=== PATIENT | female | born 1955 | race African-American/Black ===

== ENCOUNTER 2018-09-25 03:35 | Inpatient (IN) | payer MEDICAID ==
[~2018-09-25] VITALS: Ht 170.2 cm; Wt 99.8 kg
[~2018-09-25 03:35] MED LIST: ASPIR-LOW81 M1 PO; K10 PO; MIN2.5 PO; NOR10 PO; PRA40 PO; TEN50 PO; TYLENOL PO; XOP0.63; ZYR10 PO
[2018-09-25 03:40] VITALS: Ht 170.2 cm; Wt 99.8 kg
--- NOTE | 2018-09-25 03:45 | NUR ---
PATIENT AAOX4 BIB [facility] WITH ALLERGIC REACTION THAT STARTED ABOUT 230AM. PT STATES SHE WOKE UP BECAUSE SHE HAD TO GO TO THE BATHROOM AND NOTICED THE SWELLING OF HER TONGUE AND TOP OF HER MOUTH IS SWOLLEN. PT STATES THIS HAPPENS OFTEN BUT DENIES ANY ALLERGIES TO ANY FOOD PRODUCTS. PATIENT DENIES SOB, BUT STATES SHE IS HAVING DIFFICULTY SWALLOWING. MEDIC STATES SHE WAS GIVEN 25MG OF BENADRYL IN ROUTE. SKIN WARM, DRY AND INTACT- NO SKIN RASH NOTED ANYWHERE ON BODY OR FACE. PATIENT PLACED ON MONITORS FOR FURTHER OBSERVATION.
--- NOTE | 2018-09-25 04:36 | NUR ---
MEDICATED PER MD ORDERS
--- NOTE | 2018-09-25 04:57 | NUR ---
PLACED PATIENT ON COVER CUTTER MACHINE-- EKG COMPLETE. PATIENT REFUSED 02 THERAPY AT THIS TIME. 02 SATURATIONS AT 99% ON RA. WILL CONTINUE TO MONITOR.
[2018-09-25] MEDS ORDERED: LASIX20 MG PO (05:10)
[2018-09-25] MEDS ORDERED: METOPROLOL TART25 M1 PO (05:10)
[2018-09-25] MEDS ORDERED: HCTZ/SPIRONOLAC1 TAB (05:12)
[2018-09-25 05:14] LABS: BASOPHIL % 0.3 % (0-2); PLATELET COUNT 172 x10^3mcL (130-400); RED CELL DISTRIBUTION WIDTH 13.6 % (11.5-14.5)
[2018-09-25 05:15] LABS: CALCIUM 9.5 mg/dL (8.5-10.1); CARBON DIOXIDE 26.5 mmol/L (21-32); CHLORIDE SERUM 104 mmol/L (98-107); GFR1 > 60 mL/min; GLUCOSE SERUM 102 mg/dL (74-106); POTASSIUM SERUM 3.4 mmol/L (3.5-5.1); SODIUM SERUM 141 mmol/L (136-145)
[2018-09-25] MEDS ORDERED: OXYCODONE HCL30 M1 PO (05:27)
[2018-09-25 05:31] LABS: ALBUMIN 3.5 g/dL (3.4-5.0); ALKALINE PHOSPHATASE 111 U/L (46-116); ALT/SGPT 31 U/L (14-59); AST/SGOT 17 U/L (15-37); BILIRUBIN TOTAL 0.47 mg/dL (0.20-1.00); FREE T4 0.98 ng/dL (0.76-1.46); TOTAL PROTEIN, SERUM 7.4 g/dL (6.4-8.2)
--- NOTE | 2018-09-25 05:33 | NUR ---
RECEIVED REPORT FROM TRENT ALVA FROM ED. ALL QUESTIONS AND CONCERS ADDRESSED.
--- NOTE | 2018-09-25 05:45 | NUR ---
PT ARRIVED TO UNIT AT THIS TIME ON ED GURNEY WITH RN AND EMT PT PLACED IN ICU 6 AND PLACED ON FULL MECHANICAL MAINTENANCE WORKER PT IS A/O X4, SPEECH IS CLEAR AND FOLLOWS COMMANDS. PT HAS ANGIOEDEMA TO FACE, LIP AND TONGUE AND STATES THAT THIS HAPPENS ONCE A MONTH. CHEST RISE AND FALL EQUAL AND UNLABORED. PT HAS 20G IV TO LT AC. PT HAS FULL ROM. BED LEFT IN THE LOWEST POSITION AND CALL LIGHT LEFT WITHIN REACH.
[2018-09-25 05:56] VITALS: BP 168/88
[2018-09-25 06:00] LABS: MAGNESIUM 2.1 mg/dL (1.8-2.4)
[2018-09-25 06:02] LABS: CHOLESTEROL/HDL RATIO 3.2
[2018-09-25 07:10] LABS: microscopic required? YES; urine erythrocyte NEGATIVE (NEGATIVE)
[2018-09-25 07:15] LABS: AMPHETAMINE QUAL UR NONE DETECTED (See below)
[2018-09-25 07:30] VITALS: BP 138/82
--- NOTE | 2018-09-25 07:30 | NUR ---
THE PATIENT AWAKE AND ORIENTED TO PERSON, PLACE AND TIME WITH GARBLED SPEECH DUE TO ANGIOEDEMA. PATIENT DENIES PAIN, SHORTNESS OF BREATH OR NAUSEA/VOMITING. IVF NS AT 100ML/HR VIA IV AT LAC. TELE # 6 READS SINUS BRADYCARDIA/NORMAL SINUS RHYTHMS. CALL LIGHT WITHIN REACH. SIDE RAILS UPX 3.
[2018-09-25 07:45] VITALS: BP 152/82; BP 152/85
--- NOTE | 2018-09-25 08:14 | NUR ---
DR. BELL IS AT BEDSIDE SEEING THE PATIENT.
--- NOTE | 2018-09-25 09:45 | NUR ---
DR. BAKER AND THE TEAM ARE MAKING ROUND TO SEE THE PATIENT.
--- NOTE | 2018-09-25 09:58 | NUR ---
DR. BAKER, RESIDENTS, LINE RIDER AND PRIMARY RN AT BEDSIDE FOR ROUNDING. PLAN OF CARE DISCUSSED. ALL PARTIES IN AGREEMENT. STATES TO MAKE SURE PT CAN SWALLOW AND THEN POSSIBLE DISCHARGE TODAY.
[2018-09-25 11:00] VITALS: BP 136/97; BP 147/93
[2018-09-25] MEDS ORDERED: MEDDP PO (12:16)
--- NOTE | 2018-09-25 12:39 | NUR ---
Discount pharmacy card and list to low cost medical clinics given to patient by Britton Ward.
--- NOTE | 2018-09-25 13:20 | NUR ---
PATIENT FINISHED 100% OF REGULAR DIET TRAY FOR LUNCH WITH NO DIFFICULTY.
[2018-09-25 13:38] VITALS: BP 128/51
--- NOTE | 2018-09-25 14:43 | NUR ---
DISCHARGE INSTRUCTION AND PRESCRIPTION WERE IMPLEMENTED TO THE PATIENT. CONCERNS WERE ADDRESSED AND THE PATIENT VERBALIZED UNDERSTANDING. IV SITE REMOVED WITH CATH INTACT. PATIENT IS ESCORTED TO THE DISCHARGE OFFICE IN STABLE CONDITION. ALL BELONGINGS SENT HOME WITH PATIENT UPON DISCHARGE.
== END 2018-09-25 14:45 | disposition home or self-care (01) | DRG 811 ==
LOC: ED 03:35 → IC 05:00
PROVIDERS: Emergency Medicine; ADMIT Internal Medicine
DX: T78.3XXA Angioneurotic edema, initial encounter (principal); N17.0 Acute kidney failure with tubular necrosis; J44.9 Chronic obstructive pulmonary disease, unspecified; I10 Essential (primary) hypertension; E87.6 Hypokalemia; E78.5 Hyperlipidemia, unspecified; J45.909 Unspecified asthma, uncomplicated; Z68.34 Body mass index [BMI] 34.0-34.9, adult
CPT/HCPCS: 83880; 84439; C9113; G0378; J1200; J2920; J2930; J3490; J7030; Q0092

== ENCOUNTER 2018-10-31 02:32 | Inpatient (IN) | payer MEDICAID ==
[~2018-10-31] VITALS: Ht 170.2 cm; Wt 95.7 kg
[~2018-10-31 02:32] MED LIST changes: +HCTZ/SPIRONOLAC1 TAB; +LASIX20 MG PO; +MEDDP PO; +METOPROLOL TART25 M1 PO; +OXYCODONE HCL30 M1 PO
[2018-10-31 02:37] VITALS: Ht 170.2 cm; Wt 95.7 kg
--- NOTE | 2018-10-31 02:38 | NUR ---
PT BIB AMBULANCE FOR C/O OF TONGUE SWELLING THAT SHE NOTICE AT [facility] 0130 THIS MORNING. PT STATES THAT SHE HAS HAD THIS PROBELM BEFORE AND STATES HER TONGUE SWELLING IS GENETIC. PT DENIES ANY OTHER SYMPTOMS. PT DENIES ANY PAIN. PT TALKING IN FULL AND COMPLETE SENTENCES. PTS LUNG SOUNDS ARE CLEAR IN ALL FEILDS. PT NOTED TO HAVE DIFFICULTY SPEAKING. PT IS A/O X4. RESP ARE EQUAL AND UNLABORED. NO ACUTE DISTRESS NOTED.
[2018-10-31 03:12] LABS: BASOPHIL % 0.6 % (0-2); PLATELET COUNT 143 x10^3mcL (130-400); RED CELL DISTRIBUTION WIDTH 12.9 % (11.5-14.5)
[2018-10-31 03:17] LABS: CALCIUM 8.8 mg/dL (8.5-10.1); CARBON DIOXIDE 22.3 mmol/L (21-32); CREATININE SERUM 1.9 mg/dL (0.6-1.0); POTASSIUM SERUM 3.3 mmol/L (3.5-5.1)
--- NOTE | 2018-10-31 03:20 | NUR ---
PT SIGNED CONSENT FOR FFP TRANSFUSION. PT STATES THAT HER TONGUE SWELLING FEELS THE SAME AFTER RECIEVING THE MEDICATIONS. PT TALKING IN FULL AND COMPLETE SENTECES AND LUNG SOUNDS ARE CLEAR WITH AUSCULTATION. NO ACUTE DISTRESS NOTED. CALL LIGHT IS WITHIN REACH. PT IN FULL [facility] N[facility]SING STATION.
[2018-10-31 03:22] LABS: ALBUMIN 3.5 g/dL (3.4-5.0); BILIRUBIN TOTAL 0.61 mg/dL (0.20-1.00); TOTAL PROTEIN, SERUM 7.8 g/dL (6.4-8.2)
--- NOTE | 2018-10-31 03:52 | NUR ---
CALLED LAB FOR FFP. [facility] ([employer]) REPORTS IT WILL BE READY IN APPROX 25MINS. MD JACQUES MADE AWARE.
--- NOTE | 2018-10-31 04:28 | NUR ---
PT EDUCATED ON S/S OF ADVERSE REACTIONS TO FFP AND TO INFORM ME IF SHE EXPERIENCES ANY OF THE S/S. PT VERBALIZES UNDERSTANDING. TRENT LIRA AT BEDSIDE TO VERIFY PTS INFORMATION AND COSIGNS FOR FFP.
--- NOTE | 2018-10-31 04:29 | NUR ---
FFP STARTED AT THIS TIME PER MD JACQUES AT A RATE OF 3.34MLS/HR TO ACHEIVE 50MLS IN THE FIRST 15MINS OF INFUSION. WILL CONTINUE TO MONITOR.
--- NOTE | 2018-10-31 04:44 | NUR ---
INFUSED 50MLS OF FFP IN 15MINS RATE IS 200MLS/HR. PT TOLERATED WELL. NO SIGNS OF ADVERSE REACTIONS, PT HAS NO COMPLAINTS AT THIS TIME. NO ACUTE DISTRESS NOTED. FFP INFUSION SET TO RUN OVER THE NEXT HR PER MD JACQUES.
[2018-10-31 05:33] LABS: CALCIUM 8.5 mg/dL (8.5-10.1); CARBON DIOXIDE 21.9 mmol/L (21-32); CREATININE SERUM 1.6 mg/dL (0.6-1.0); PHOSPHOROUS 4.1 mg/dL (2.5-4.9); POTASSIUM SERUM 3.4 mmol/L (3.5-5.1)
--- NOTE | 2018-10-31 05:43 | NUR ---
PT SLEEPING AT THIS TIME EQUAL CHEST RISE AND FALL NOTED. FFP STILL RUNNING AT THIS TIME. PT VITALS ARE WNL. NO ACUTE DISTRESS NOTED.
--- NOTE | 2018-10-31 05:53 | NUR ---
FFP INFUSION FINISHED AT THIS TIME. PT TOLERATED WELL. VITALS ARE WNL. NO ACUTE DISTRESS NOTED. PT TALKING IN FULL AND COMPLETE SENTENCES. PT LUNG SOUNDS ARE CLEAR. PT REPORTS SHE FEEL HER TONGUE SWELLING HAS DECREASED.
[2018-10-31 06:08] VITALS: BP 119/73
--- NOTE | 2018-10-31 06:13 | NUR ---
TRENT LIRA AT BEDSIDE TO VERFIY INFORMATION FOR 2ND UNIT OF FFP AND COSIGN.
--- NOTE | 2018-10-31 06:15 | NUR ---
SECOND UNIT OF FFP STARTED AT THIS TIME PER MD JACQUES. INFUSION STARTED AT 200MLS/HR TO ACHIEVE AND INFUSION OF 50MLS IN THE FIRST 15MINS. AT PTS BEDSIDE TO MONITOR FOR SIGNS OF ADVERSE REACTIONS.
[2018-10-31] MEDS ORDERED: XARELTO10 M1 PO (06:16)
--- NOTE | 2018-10-31 06:32 | NUR ---
50MLS OF FFP INFUSED OVER 15MINS. NO SIGNS OF ADVERSE REACTIONS. PT HAS NO COMPLAINTS. PT VITALS ARE WNL. NO ACUTE DISTRESS NOTED. FFP INFUSION SET TO RUN OVER THE NEXT HR PER MD JACQUES.
--- NOTE | 2018-10-31 06:48 | NUR ---
SUMMONDED TO PTS BEDSIDE. PT COMPLAINS OF ITCHINESS TO HER BACK. PT NOTED TO HAVE REDNESS AND HIVES TO HER UPPER BACK. INFUSION STOPPED AT THIS TIME. PT VITALS WNL. PT NOT COMPLAINING OF ANY DIFFICULTY BREATING. MD CAMPOS MADE AWARE. PER MD CAMPOS GIVE PT 50MG OF BENADRYL IV AND CONTINUE FFP INFUSION.
--- NOTE | 2018-10-31 07:13 | NUR ---
PT REPORTING ITCHINESS AGAIN. FFP INFUSION STOPPED AT THIS TIME. PT VITALS ARE WNL. MD CAMPOS MADE AWARE. PER MD CAMPOS HOLD THE REST OF THE INFUSION. PT VITALS WNL. NO ACUTE DISTRESS NOTED.
--- NOTE | 2018-10-31 07:51 | NUR ---
REPORT GIVEN TO HARRY NEWMAN TO ASSUME CARE OF PT.
--- NOTE | 2018-10-31 08:00 | NUR ---
PT ARRIVED ON UNIT AWAKE & ALERT, ORIENTED X 4. ADMISSION VITAL SIGNS: T 97.1, BP 138/63 (88), HR 96, RR 12, SPO2 97%. PT ABLE TO COMMUNICATE NEEDS & FOLLOWS COMMANDS. PT BREATHING E/U ON ROOM AIR, CHEST EXPANSION SYMMETRICAL. PT'S TONGUE IS SWOLLEN BUT PT DENIES DIFFICULTY BREATHING AND DENIES DIFFICULTY SWALLOWING. PT HAS HIVES, BUT NO AREAS OF BROKEN SKIN OR OTHER SKIN ALTERATIONS. PT AMBULATORY, ABLE TO REPOSITION SELF IN BED. WILL CONTINUE TO MONITOR PT AND CARRY OUT ORDERS.
--- NOTE | 2018-10-31 09:53 | NUR ---
DR. BAKER, RESIDENTS, INTERN RETAIL AND PRIMARY RN AT BEDSIDE FOR MORNING ROUNDS. PLAN OF CARE DISCUSSED WITH PT. PT IN AGREEMENT TO PLAN. WILL CONT TO MONITOR.
[2018-10-31 10:02] VITALS: BP 138/63
[2018-10-31 12:30] VITALS: BP 117/51
--- NOTE | 2018-10-31 15:16 | NUR ---
Discount pharmacy card and list to low cost medical clinics given to patient by Britton Ward.
[2018-10-31] MEDS ORDERED: MEDDP PO (15:30)
[2018-10-31 15:33] VITALS: BP 116/72
[2018-10-31 16:23] VITALS: BP 116/72
--- NOTE | 2018-10-31 17:31 | NUR ---
PT DISCHARGED HOME FROM ICU AT THIS TIME. PT AWAKE, ALERT, ORIENTED X 4. DISCHARGE VITAL SIGNS: T 97.6, BP 117/63 (80), HR 84, RR 20, SPO2 94% ON ROOM AIR. NO S/S RESPIRATORY DISTRESS, PT'S TONGUE SWELLING WENT DOWN, PT'S HIVES RESOLVED. PT AMBULATORY, TAKEN OUT OF UNIT VIA WHEELCHAIR BY RN. PT STABLE UPON DISCHARGE, PROVIDED WITH DISCHARGE EDUCATION & PRESCRIPTION FOR NEW MEDICATIONS.
== END 2018-10-31 17:31 | disposition home or self-care (01) | DRG 811 ==
LOC: ED 02:32 → IC 04:32
PROVIDERS: Emergency Medicine; ADMIT Internal Medicine
DX: T78.3XXA Angioneurotic edema, initial encounter (principal); N17.0 Acute kidney failure with tubular necrosis; E87.5 Hyperkalemia; I10 Essential (primary) hypertension; J44.9 Chronic obstructive pulmonary disease, unspecified; Z68.33 Body mass index [BMI] 33.0-33.9, adult; Z79.01 Long term (current) use of anticoagulants; Z86.73 Personal history of transient ischemic attack (TIA), and cerebral infarction without residual deficits
CPT/HCPCS: 94150; G0378; J1200; J2920; J2930; J3490; J7030; J7040; J7620; P9059; Q0092

== ENCOUNTER 2018-12-07 10:17 | Emergency (ER) | payer MEDICAID ==
[~2018-12-07] VITALS: Ht 170.2 cm; Wt 101.2 kg
[~2018-12-07 10:17] MED LIST changes: +XARELTO10 M1 PO
[2018-12-07 10:20] VITALS: Ht 170.2 cm; Wt 101.2 kg
[2018-12-07 12:00] LABS: BASOPHIL % 0.3 % (0-2); PLATELET COUNT 152 x10^3mcL (130-400); RED CELL DISTRIBUTION WIDTH 13.7 % (11.5-14.5)
[2018-12-07 13:06] LABS: CALCIUM 8.4 mg/dL (8.5-10.1); CARBON DIOXIDE 30.2 mmol/L (21-32); CREATININE SERUM 1.3 mg/dL (0.6-1.0); POTASSIUM SERUM 3.9 mmol/L (3.5-5.1)
[2018-12-07 13:10] LABS: BILIRUBIN TOTAL 0.56 mg/dL (0.20-1.00); TOTAL PROTEIN, SERUM 7.1 g/dL (6.4-8.2)
[2018-12-07 13:13] LABS: ALBUMIN 3.3 g/dL (3.4-5.0)
[2018-12-07 13:55] VITALS: BP 153/87
== END 2018-12-07 13:55 | disposition home or self-care (01) ==
LOC: ED 10:17
PROVIDERS: Emergency Medicine
DX: T78.3XXA Angioneurotic edema, initial encounter (principal); J44.9 Chronic obstructive pulmonary disease, unspecified; E78.00 Pure hypercholesterolemia, unspecified; Z88.8 Allergy status to other drugs, medicaments and biological substances; Z88.6 Allergy status to analgesic agent
CPT/HCPCS: J0171; J1200; J2930; J3490

== ENCOUNTER 2019-02-11 08:05 | Emergency (ER) | payer OTHER ==
[~2019-02-11] VITALS: Ht 170.2 cm; Wt 101.6 kg
[2019-02-11 08:09] VITALS: Ht 170.2 cm; Wt 101.6 kg
[2019-02-11 09:32] VITALS: BP 166/92
== END 2019-02-11 09:48 | disposition home or self-care (01) ==
LOC: ED 08:05
DX: T78.40XA Allergy, unspecified, initial encounter (principal); J44.9 Chronic obstructive pulmonary disease, unspecified; I10 Essential (primary) hypertension; E78.00 Pure hypercholesterolemia, unspecified; Z86.73 Personal history of transient ischemic attack (TIA), and cerebral infarction without residual deficits; Z88.6 Allergy status to analgesic agent; X58.XXXA Exposure to other specified factors, initial encounter
CPT/HCPCS: J7512

== ENCOUNTER 2019-02-21 10:27 | Emergency (ER) | payer OTHER ==
[~2019-02-21] VITALS: Ht 170.2 cm; Wt 100.7 kg
[2019-02-21 10:33] VITALS: Ht 170.2 cm; Wt 100.7 kg
[2019-02-21 12:15] VITALS: BP 112/86
== END 2019-02-21 12:49 | disposition home or self-care (01) ==
LOC: ED 10:27
DX: J40 Bronchitis, not specified as acute or chronic (principal); J44.9 Chronic obstructive pulmonary disease, unspecified; I10 Essential (primary) hypertension; E78.00 Pure hypercholesterolemia, unspecified; Z86.73 Personal history of transient ischemic attack (TIA), and cerebral infarction without residual deficits; Z88.6 Allergy status to analgesic agent
CPT/HCPCS: 87804; Q0092

== ENCOUNTER 2019-03-26 12:09 | Emergency (ER) | payer MEDICAID ==
[~2019-03-26] VITALS: Ht 170.2 cm; Wt 97.5 kg
[2019-03-26 12:24] VITALS: Ht 170.2 cm; Wt 97.5 kg
[2019-03-26 14:05] VITALS: BP 121/75
== END 2019-03-26 14:05 | disposition home or self-care (01) ==
LOC: ED 12:09
DX: T78.3XXA Angioneurotic edema, initial encounter (principal); J45.909 Unspecified asthma, uncomplicated; J44.9 Chronic obstructive pulmonary disease, unspecified; I10 Essential (primary) hypertension; E78.00 Pure hypercholesterolemia, unspecified; Z98.84 Bariatric surgery status; Z88.6 Allergy status to analgesic agent; Z88.8 Allergy status to other drugs, medicaments and biological substances; Z86.73 Personal history of transient ischemic attack (TIA), and cerebral infarction without residual deficits
CPT/HCPCS: J7512; Q0163

== ENCOUNTER 2019-04-15 07:30 | Emergency (ER) | payer OTHER ==
[~2019-04-15] VITALS: Ht 170.2 cm; Wt 99.3 kg
[2019-04-15 07:36] VITALS: Ht 170.2 cm; Wt 99.3 kg
[2019-04-15 12:05] VITALS: BP 131/91
== END 2019-04-15 12:05 | disposition home or self-care (01) ==
LOC: ED 07:30
DX: T78.3XXA Angioneurotic edema, initial encounter (principal)
CPT/HCPCS: J1200; J3490; J7030

== ENCOUNTER 2019-06-20 01:46 | Emergency (ER) | payer OTHER ==
[~2019-06-20] VITALS: Ht 170.2 cm; Wt 957.6 kg
[2019-06-20 01:54] VITALS: Ht 170.2 cm; Wt 957.6 kg
[2019-06-20 05:31] VITALS: BP 141/74
== END 2019-06-20 05:31 | disposition home or self-care (01) ==
LOC: ED 01:46
DX: T78.3XXA Angioneurotic edema, initial encounter (principal); J44.1 Chronic obstructive pulmonary disease with (acute) exacerbation; I10 Essential (primary) hypertension; E78.00 Pure hypercholesterolemia, unspecified; Z86.73 Personal history of transient ischemic attack (TIA), and cerebral infarction without residual deficits; Z98.84 Bariatric surgery status; Z88.6 Allergy status to analgesic agent; Z88.8 Allergy status to other drugs, medicaments and biological substances
CPT/HCPCS: J1200; J2930; J3490

== ENCOUNTER 2019-07-15 08:40 | Emergency (ER) | payer OTHER ==
[~2019-07-15] VITALS: Ht 172.7 cm; Wt 95.3 kg
[2019-07-15 08:47] VITALS: Ht 172.7 cm; Wt 95.3 kg
[2019-07-15 09:39] LABS: CALCIUM 8.9 mg/dL (8.5-10.1); CARBON DIOXIDE 28.5 mmol/L (21-32); POTASSIUM SERUM 4.4 mmol/L (3.5-5.1)
[2019-07-15 09:44] LABS: ALBUMIN 3.4 g/dL (3.4-5.0); BILIRUBIN TOTAL 0.33 mg/dL (0.20-1.00); TOTAL PROTEIN, SERUM 6.8 g/dL (6.4-8.2)
[2019-07-15 09:54] LABS: BASOPHIL % 0.4 % (0-2); PLATELET COUNT 144 x10^3mcL (130-400)
[2019-07-15 09:57] LABS: RED CELL DISTRIBUTION WIDTH 14.9 % (11.5-14.5)
[2019-07-15 11:03] VITALS: BP 128/87
== END 2019-07-15 11:03 | disposition home or self-care (01) ==
LOC: ED 08:40
PROVIDERS: Emergency Medicine
DX: R07.89 Other chest pain (principal); I11.0 Hypertensive heart disease with heart failure; I50.9 Heart failure, unspecified; F17.210 Nicotine dependence, cigarettes, uncomplicated; E78.00 Pure hypercholesterolemia, unspecified; J44.9 Chronic obstructive pulmonary disease, unspecified; Z88.6 Allergy status to analgesic agent
CPT/HCPCS: 36415; 83880; Q0092

== ENCOUNTER 2019-07-23 17:21 | Emergency (ER) | payer OTHER ==
[~2019-07-23] VITALS: Ht 170.2 cm; Wt 94.8 kg
[2019-07-23 17:28] VITALS: Ht 170.2 cm; Wt 94.8 kg
[2019-07-23 19:40] VITALS: BP 139/83
== END 2019-07-23 19:40 | disposition home or self-care (01) ==
LOC: ED 17:21
DX: T78.3XXA Angioneurotic edema, initial encounter (principal); J44.9 Chronic obstructive pulmonary disease, unspecified; I50.9 Heart failure, unspecified; I10 Essential (primary) hypertension; E78.00 Pure hypercholesterolemia, unspecified; Z88.6 Allergy status to analgesic agent; Z86.73 Personal history of transient ischemic attack (TIA), and cerebral infarction without residual deficits; Z98.84 Bariatric surgery status; Z88.8 Allergy status to other drugs, medicaments and biological substances
CPT/HCPCS: J1100; J1200; J3490

== ENCOUNTER 2019-08-08 06:08 | Emergency (ER) | payer OTHER ==
[~2019-08-08] VITALS: Ht 170.2 cm; Wt 94.8 kg
[2019-08-08 06:16] VITALS: Ht 170.2 cm; Wt 94.8 kg
[2019-08-08 07:24] LABS: microscopic required? NO
[2019-08-08 07:26] LABS: CALCIUM 8.9 mg/dL (8.5-10.1); CARBON DIOXIDE 27.7 mmol/L (21-32); CREATININE SERUM 1.1 mg/dL (0.6-1.0); POTASSIUM SERUM 3.7 mmol/L (3.5-5.1)
[2019-08-08 07:28] LABS: BILIRUBIN TOTAL 0.39 mg/dL (0.20-1.00); TOTAL PROTEIN, SERUM 6.8 g/dL (6.4-8.2)
[2019-08-08 07:29] LABS: ALBUMIN 3.3 g/dL (3.4-5.0)
[2019-08-08 07:52] LABS: BASOPHIL % 0.5 % (0-2); PLATELET COUNT 150 x10^3mcL (130-400)
[2019-08-08 07:53] LABS: RED CELL DISTRIBUTION WIDTH 14.6 % (11.5-14.5)
[2019-08-08 08:12] LABS: urine erythrocyte NEGATIVE (NEGATIVE)
[2019-08-08 08:44] VITALS: BP 134/96
== END 2019-08-08 08:44 | disposition home or self-care (01) ==
LOC: ED 06:08
PROVIDERS: Emergency Medicine
DX: R42 Dizziness and giddiness (principal); R20.0 Anesthesia of skin; F17.210 Nicotine dependence, cigarettes, uncomplicated; J44.9 Chronic obstructive pulmonary disease, unspecified; I11.0 Hypertensive heart disease with heart failure; I50.9 Heart failure, unspecified; E78.00 Pure hypercholesterolemia, unspecified; Z86.2 Personal history of diseases of the blood and blood-forming organs and certain disorders involving the immune mechanism; Z88.6 Allergy status to analgesic agent
CPT/HCPCS: 36415

== ENCOUNTER 2019-10-19 14:39 | Emergency (ER) | payer OTHER ==
[~2019-10-19] VITALS: Ht 175.3 cm; Wt 95.3 kg
[2019-10-19 14:49] VITALS: BP 150/91; Ht 175.3 cm; Wt 95.3 kg
== END 2019-10-19 16:59 | disposition home or self-care (01) ==
LOC: ED 14:39
DX: M79.661 Pain in right lower leg (principal); M54.16 Radiculopathy, lumbar region; J44.9 Chronic obstructive pulmonary disease, unspecified; G89.29 Other chronic pain; M54.5 Low back pain; I50.9 Heart failure, unspecified; I11.0 Hypertensive heart disease with heart failure; E78.00 Pure hypercholesterolemia, unspecified; Z86.73 Personal history of transient ischemic attack (TIA), and cerebral infarction without residual deficits; Z88.8 Allergy status to other drugs, medicaments and biological substances; Z88.6 Allergy status to analgesic agent
CPT/HCPCS: Q0092

== ENCOUNTER 2019-11-17 14:50 | Emergency (ER) | payer OTHER ==
[~2019-11-17] VITALS: Ht 170.2 cm; Wt 96.2 kg
[2019-11-17 15:06] VITALS: Ht 170.2 cm; Wt 96.2 kg
[2019-11-17 15:31] VITALS: BP 145/92
== END 2019-11-17 17:06 | disposition home or self-care (01) ==
LOC: ED 14:50
DX: T78.3XXA Angioneurotic edema, initial encounter (principal); J44.9 Chronic obstructive pulmonary disease, unspecified; I50.9 Heart failure, unspecified; I10 Essential (primary) hypertension; E78.00 Pure hypercholesterolemia, unspecified; Z98.84 Bariatric surgery status; Z86.73 Personal history of transient ischemic attack (TIA), and cerebral infarction without residual deficits; Z88.6 Allergy status to analgesic agent
CPT/HCPCS: J1200; J2930; J3490

== ENCOUNTER 2019-12-08 14:32 | Emergency (ER) | payer OTHER ==
[~2019-12-08] VITALS: Ht 170.2 cm; Wt 93.9 kg
[2019-12-08 15:00] VITALS: Ht 170.2 cm; Wt 93.9 kg
[2019-12-08 17:18] LABS: CALCIUM 8.9 mg/dL (8.5-10.1); CARBON DIOXIDE 26.7 mmol/L (21-32); CREATININE SERUM 1.4 mg/dL (0.6-1.0); POTASSIUM SERUM 3.3 mmol/L (3.5-5.1)
[2019-12-08 17:22] LABS: BILIRUBIN TOTAL 0.44 mg/dL (0.20-1.00)
[2019-12-08 17:23] LABS: BASOPHIL % 0.8 % (0-2); PLATELET COUNT 158 x10^3mcL (130-400); RED CELL DISTRIBUTION WIDTH 13.8 % (11.5-14.5)
[2019-12-08 17:24] LABS: ALBUMIN 3.1 g/dL (3.4-5.0)
[2019-12-08 20:30] VITALS: BP 138/92
== END 2019-12-08 20:30 | disposition home or self-care (01) ==
LOC: ED 14:32
PROVIDERS: Emergency Medicine
DX: J44.1 Chronic obstructive pulmonary disease with (acute) exacerbation (principal); F17.210 Nicotine dependence, cigarettes, uncomplicated; J45.909 Unspecified asthma, uncomplicated; I11.0 Hypertensive heart disease with heart failure; I50.9 Heart failure, unspecified; E78.00 Pure hypercholesterolemia, unspecified; Z86.73 Personal history of transient ischemic attack (TIA), and cerebral infarction without residual deficits; Z88.6 Allergy status to analgesic agent
CPT/HCPCS: 99406; Q0092

== ENCOUNTER 2019-12-28 09:56 | Emergency (ER) | payer OTHER ==
[~2019-12-28] VITALS: Ht 170.2 cm; Wt 95.3 kg
[2019-12-28 10:01] VITALS: BP 138/81; Ht 170.2 cm; Wt 95.3 kg
== END 2019-12-28 10:18 | disposition home or self-care (01) ==
LOC: ED 09:56
DX: G89.29 Other chronic pain (principal); Z76.0 Encounter for issue of repeat prescription; J44.9 Chronic obstructive pulmonary disease, unspecified; I50.9 Heart failure, unspecified; I11.0 Hypertensive heart disease with heart failure; E78.00 Pure hypercholesterolemia, unspecified; Z86.73 Personal history of transient ischemic attack (TIA), and cerebral infarction without residual deficits; Z88.6 Allergy status to analgesic agent

== ENCOUNTER 2020-02-02 19:30 | Emergency (ER) | payer OTHER ==
[~2020-02-02] VITALS: Ht 170.2 cm; Wt 95.3 kg
[2020-02-02 20:01] VITALS: Ht 170.2 cm; Wt 95.3 kg
[2020-02-03 00:46] LABS: CALCIUM 8.8 mg/dL (8.5-10.1); CARBON DIOXIDE 29.4 mmol/L (21-32); CREATININE SERUM 1.3 mg/dL (0.6-1.0); POTASSIUM SERUM 3.7 mmol/L (3.5-5.1)
--- NOTE | 2020-02-03 00:52 | NUR ---
MDI 3 PUFF TX DONE IN ED. NO ADVERSE REACTIONS.
[2020-02-03 00:53] LABS: BILIRUBIN TOTAL 0.7 mg/dL (0.20-1.00); TOTAL PROTEIN, SERUM 7.2 g/dL (6.4-8.2)
[2020-02-03 01:00] LABS: ALBUMIN 3.3 g/dL (3.4-5.0)
[2020-02-03 01:02] LABS: BASOPHIL % 0.4 % (0-2); PLATELET COUNT 190 x10^3mcL (130-400); RED CELL DISTRIBUTION WIDTH 14.5 % (11.5-14.5)
[2020-02-03 03:12] VITALS: BP 141/95
== END 2020-02-03 02:57 | disposition home or self-care (01) ==
LOC: ED 19:30
PROVIDERS: Student in an Organized Health Care Education/Training Program
DX: J44.1 Chronic obstructive pulmonary disease with (acute) exacerbation (principal); I11.0 Hypertensive heart disease with heart failure; I50.9 Heart failure, unspecified; E78.00 Pure hypercholesterolemia, unspecified; F17.210 Nicotine dependence, cigarettes, uncomplicated; Z88.6 Allergy status to analgesic agent; Z98.84 Bariatric surgery status; Z20.828 Contact with and (suspected) exposure to other viral communicable diseases; R06.2 Wheezing
CPT/HCPCS: 83880; J1940; J7512; U0003

== ENCOUNTER 2020-02-18 19:27 | Inpatient (IN) | payer OTHER ==
[~2020-02-18] VITALS: Ht 170.2 cm; Wt 94.9 kg
[2020-02-18 19:35] VITALS: Ht 170.2 cm; Wt 94.9 kg
[2020-02-18 21:00] LABS: BASOPHIL % 0.5 % (0-2); PLATELET COUNT 176 x10^3mcL (130-400)
[2020-02-18 21:08] LABS: CALCIUM 9.1 mg/dL (8.5-10.1); CARBON DIOXIDE 27.3 mmol/L (21-32); CREATININE SERUM 1.2 mg/dL (0.6-1.0); POTASSIUM SERUM 3.3 mmol/L (3.5-5.1)
[2020-02-18 21:12] LABS: ALBUMIN 3.4 g/dL (3.4-5.0); BILIRUBIN TOTAL 0.71 mg/dL (0.20-1.00); TOTAL PROTEIN, SERUM 7.7 g/dL (6.4-8.2)
[2020-02-18 21:13] LABS: RED CELL DISTRIBUTION WIDTH 15.2 % (11.5-14.5)
--- NOTE | 2020-02-18 21:33 | NUR ---
PT IN ED FOR HEART PALPITATIONS AND SOB THAT STARTED TODAY AROUND 1600 THIS EVENING. PT DENIES CHEST PAIN. CONNECTED TO CM, VSS. PT HAS HX OF COPD AND CHF, AND IS COMPLINT WITH MEDICATIONS PER PT. EKG DONE IN TRIAGE AND GIVEN TO MD PT IS A SMOKER, AAO X4 ABLE TO MAKE NEEDS KNOWN, NO EDEMA OBSERVED, AWAITING MSE.
--- NOTE | 2020-02-18 22:10 | NUR ---
PT IN BED DR HARE JUST FINISHED MSE. DENIES SOB AT REASSESSMENT, CONTINUES TO DENY PAIN, WILL MONITOR
--- NOTE | 2020-02-19 00:25 | NUR ---
PT IN [facility] UPDATED ON POC, PT IS AWARE THAT SHE IS BEING ADMITTED, VSS DENIES PAIN, PT SWABBED FOR ALEXANDRO AND SENT TO LAB PT STATES SHE IS TIRED AND WISHES TO REST, WILL MONITOR
[2020-02-19 01:12] LABS: MAGNESIUM 1.9 mg/dL (1.8-2.4); PHOSPHOROUS 3.4 mg/dL (2.5-4.9)
--- NOTE | 2020-02-19 01:16 | NUR ---
PT A&OX4 WITH BILATERAL CHEST RISE AND FALL. PT AMBULATED TO RESTROOM WITH STEADY GAIT. URINE SPECIMEN SENT TO LAB.
[2020-02-19 01:22] LABS: T3 TOTAL 0.99 ng/mL
[2020-02-19 01:22] LABS: microscopic required? NO
[2020-02-19 01:39] LABS: UA SPECIFIC GRAVITY 1.015 (1.005-1.035); urine erythrocyte NEGATIVE (NEGATIVE)
[2020-02-19 02:02] LABS: AMPHETAMINE QUAL UR NONE DETECTED (See below)
[2020-02-19 02:10] VITALS: BP 152/89
[2020-02-19 02:11] LABS: FREE T4 1.02 ng/dL (0.76-1.46); FREE THYROXINE INDEX 2.1 ug/dL (1.4-4.5); T4(THYROXINE) 5.8 ug/dL (4.7-13.3)
--- NOTE | 2020-02-19 02:22 | NUR ---
RECEIVED FROM ER, TRANSPORTED VIA [facility]. AWAKE AND ALERT, ORIENTED TO NAME, PLACE, TIME AND SITUATION. SPEECH CLEAR AND APPROPRIATE. AMBULATED FROM HALLWAY TO BED WITH STEADY GAIT. BREATHING EVEN AND UNLABORED ON ROOM AIR. LUNG SOUNDS DIMINISHED BILATERALLY, NO RALES OR CRACKLES HEARD. O2 SAT 100%. SINUS RHYTHM WITH BBB WHEN PLACED ON TELE. DENIES HAVING CHEST PAIN OR PALPITATIONS AT THIS TIME. INSTRUCTED ON USE OF CALL LIGHT TO CALL FOR ASSISTANCE, PLACED WITHIN EASY REACH.
--- NOTE | 2020-02-19 04:23 | NUR ---
MEDICAL DOCTOR MD CALLED, PT HAD 4 RUNS OF PVCS. PT SLEEPING ON PRONE POSITION. ASYMPTOMATIC. VITAL SIGNS TAKEN - BP 144/95, IL 75, O2 SAT 95% ON RA, RR 18.
[2020-02-19 04:24] VITALS: BP 144/95
--- NOTE | 2020-02-19 04:31 | NUR ---
PAGED DR. VEE
--- NOTE | 2020-02-19 05:46 | NUR ---
AWAIT CALL BACK, REPAGED DR. SEGOVIA
--- NOTE | 2020-02-19 06:05 | NUR ---
CALLED RESIDENT'S PHONE, SPOKE WITH DR. SEGOVIA, INFORMED OF 4 CONSECUTIVE PVCS EARLIER, PT ASYMPTOMATIC.
--- NOTE | 2020-02-19 06:13 | NUR ---
EYES CLOSED, BREATHING EVEN AND UNLABORED ON ROOM AIR. CALL LIGHT WITHIN EASY REACH.
--- NOTE | 2020-02-19 06:46 | NUR ---
HAD A SHORT RUN OF VTACH. PT ASYMPTOMATIC. INFORMED DR. SEGOVIA
--- NOTE | 2020-02-19 07:16 | NUR ---
ENDORSED TO REGISTRY NURSE AMARILIS
[2020-02-19 08:57] VITALS: BP 141/81
[2020-02-19 09:00] LABS: BASOPHIL % 0.2 % (0-2); PLATELET COUNT 168 x10^3mcL (130-400)
[2020-02-19 09:13] LABS: RED CELL DISTRIBUTION WIDTH 14.7 % (11.5-14.5)
[2020-02-19 10:47] LABS: CALCIUM 8.8 mg/dL (8.5-10.1); CARBON DIOXIDE 25.7 mmol/L (21-32); CREATININE SERUM 1.1 mg/dL (0.6-1.0); POTASSIUM SERUM 3.6 mmol/L (3.5-5.1)
--- NOTE | 2020-02-19 11:20 | NUR ---
RECEIVED PATIENT IN ROOM, ACTIVITIES AT BEDSIDE. PATIENT IS ALERT, AWAKE AND ORIENTED X4. PATIENT ON ROOM AIR. NOTED MULTIPLE FACIAL SKIN TAGS. PATIENT IS AMBULATORY WITH STEADY GAIT. ECHO DONE AT HIS TIME. BED IN LOWEST POSITION. CALL LIGHT WIHTIN EASY REACH. RECEIVED XARELTO. DENIES PAIN AT THIS TIME. WILL CONTINUE TO MONITOR PATIENT.
[2020-02-19 12:25] VITALS: BP 142/85
--- NOTE | 2020-02-19 13:19 | NUR ---
PATIENT RESTING QUIETLY, DENIES PAIN. WILL CONTINUE TO MONITOR.
[2020-02-19 16:05] VITALS: BP 149/77
--- NOTE | 2020-02-19 19:31 | NUR ---
AWAKE AND ALERT, LYING ON HER TUMMY. ORIENTED TO NAME, PLACE, TIME AND SITUATION. SPEECH CLEAR AND APPROPRIATE. BREATHING EVEN AND UNLABORED ON ROOM AIR. DENIES HAVING SHORTNESS OF BREATH AT THIS TIME. SINUS RHYTHM WITH LEFT BUNDLE BRANCH WITH PVCS NOTED ON TELE. DENIES HAVING CHEST PAIN OR CHEST DISCOMFORT AT THIS TIME. STATED VOIDING WELL. SALINE LOCKED TO RIGHT AC. DISCUSSED WITH PT MEDICATIONS DUE TONIGHT. PT EXPRESSED THAT SHE TAKES XARELTO AND CANNOT TAKE ELIQUIS. WILL INFORMED RESIDENT COMMERCIAL INSURANCE UNDERWRITER.
[2020-02-19 20:32] VITALS: BP 127/73
--- NOTE | 2020-02-19 20:42 | NUR ---
DISCUSSED WITH PT PURPOSE OF ELIQUIS AND COREG. SHE CLARIFIED SHE HAD NO DEFINITE ALLERGIES TO ELIQUIS OR COREG, BUT THAT SHE HAS BEEN TAKING XARELTO. PT AGREED TO TAKE BOTH
--- NOTE | 2020-02-19 20:56 | NUR ---
late entry: - informed dr. aldana that pt had stated she takes xarelto and cannot take eliquis.
--- NOTE | 2020-02-20 00:11 | NUR ---
RISK CONSULTANT REPORTED PT HAD SHORT RUN OF VTACH. CHECKED PT. PT WAS ASLEEP, EASILY AWAKENED. ASYMPTOMATIC. PHYSICIANS AWARE PT HAS EPISODES OF SHORT RUN OF VTACH. DR. LIZARRAGA ALREADY ON CONSULT.
--- NOTE | 2020-02-20 01:15 | NUR ---
INFORMED DR. SEGOVIA PT HAD SHORT RUN OF VTACH, ASYMPTOMATIC.
[2020-02-20 05:45] VITALS: BP 122/78
--- NOTE | 2020-02-20 06:40 | NUR ---
EYES CLOSED, EASILY AWAKENED. BREATHING REMAINED EVEN AND UNLABORED ON ROOM AIR. NO COMPLAINTS OF CHEST PAIN OR CHEST DISCOMFORT DURING SHIFT. CALL LIGHT WITHIN EASY REACH.
--- NOTE | 2020-02-20 07:18 | NUR ---
AWAKE AND ALERT, IN NO ACUTE DISTRESS. ENDORSED TO NURSE REE
--- NOTE | 2020-02-20 07:30 | NUR ---
RECEIVED REPORT FROM NIGHT NURSE. PATIENT IS RESTING IN BED, AAO TIMES. 4. DENIES PAIN. RESPIRATIONS EVEN AND UL ON RA. DENIES CP/CARDIAC DISCOMFORT. SL TO RAC, CDI, PATENT. BED IN LOWEST POSITION, CALL LIGHT IN REACH, SAFETY MEASURES IN PLACE.
[2020-02-20 08:18] VITALS: BP 127/82
[2020-02-20 08:26] LABS: CARBON DIOXIDE 26.1 mmol/L (21-32); CREATININE SERUM 1.3 mg/dL (0.6-1.0)
[2020-02-20 08:38] LABS: BASOPHIL % 0.4 % (0-2); PLATELET COUNT 162 x10^3mcL (130-400); RED CELL DISTRIBUTION WIDTH 15.4 % (11.5-14.5)
--- NOTE | 2020-02-20 12:00 | NUR ---
PATIENT RESTING IN BED, RESPIRATIONS EVEN AND UL ON RA. DENIES PAIN AND DISCOMFORT. BED IN LOWEST POSITION, CALL LIGHT IN REACH, SAFETY MEASURES IN PLACE. WILL CONT TO MONITOR.
[2020-02-20 12:42] VITALS: BP 120/79
[2020-02-20 17:18] VITALS: BP 124/86
--- NOTE | 2020-02-20 18:13 | NUR ---
PATIENT RESTING IN BED, RESPIRATIONS EVEN AND UL ON RA. DENIES PAIN AND DISCOMFORT. IV SITE TO RAC, SL, PATENT AND INTACT, NO SWELLING OR ERYTHEMA AT SITE. NO ACUTE CHANGES THROUGHOUT SHIFT. BED IN LOWEST POSITION, CALL LIGHT IN REACH, SAFETY MEASURES IN PLACE. WILL CONT TO MONITOR AND ENDORSE TO NIGHT NURSE.
--- NOTE | 2020-02-20 20:00 | NUR ---
patient in bed. no distress. independent and ambulatory. no s/s of distress, denies pain. fluid restriction maintained. said Ok ti give eliquis and begin to hold on 02/20 for AICD. no concerns at this time. call light within reach, bed in lowest position. will continue to monitor.
--- NOTE | 2020-02-20 21:28 | NUR ---
CLARIFIED ORDER OF ELIQUIS TO BE GIVEN TONIGHT DUE TO PATIENT GOING FOR AICD ON SUNDAY. OK TO GIVE ELIQUIS TONIGHT PER DR. DEL CASTILLO AND WILL HOLD STARTING TOMORROW. PRIMARY RN MADE AWARE.
[2020-02-20 21:37] VITALS: BP 109/53
--- NOTE | 2020-02-21 | NUR ---
patient calm and asleep in bed. no s/s of distress, alert and oriented x4. bed in lowest position. call light within reach. will continue to monitor
[2020-02-21 05:31] VITALS: BP 129/95
--- NOTE | 2020-02-21 06:00 | NUR ---
PATIENT HAD A PEACEFUL NIGHT WITH NO SIGNIFICANT EVENT. CALM AND ASLEEP IN BED. NO PAIN. BED IN LOWEST POSITION, CALL LIGHT WITHIN REACH. WILL ENDORSE CARE TO DAY NURSE
--- NOTE | 2020-02-21 06:30 | NUR ---
patient confused. nor calmer this morning than she was all night trying to get out of bed. so telemetry leads are in place. continous need for replacements as pt kept taking them off. no s/s of distress. bed alarm, call light within reach, bed in lowest position. frequent rounding. will endorse care to day nurse.
[2020-02-21 06:48] LABS: BASOPHIL % 0.4 % (0-2); PLATELET COUNT 158 x10^3mcL (130-400)
[2020-02-21 07:10] LABS: CARBON DIOXIDE 24.9 mmol/L (21-32); CREATININE SERUM 1.3 mg/dL (0.6-1.0); POTASSIUM SERUM 3.6 mmol/L (3.5-5.1)
[2020-02-21 07:22] LABS: RED CELL DISTRIBUTION WIDTH 15.3 % (11.5-14.5)
--- NOTE | 2020-02-21 07:30 | NUR ---
RECEIVED REPORT FROM NIGHT NURSE. PATIENT RESTING IN BED, AAO TIMES 4. DENIES PAIN AND DISCOMFORT. RESPIRATIONS EVEN AND UL ON RA. DENIES CP/CARDIAC DISCOMFORT. IV SITE TO RAC, INTACT AND PATENT. BED IN LOWEST POSITION, CALL LIGHT IN REACH, SAFETY MEASURES IN PLACE. WILL CONT TO MONITOR.
[2020-02-21 08:17] VITALS: BP 128/85
[2020-02-21 12:22] VITALS: BP 127/77
--- NOTE | 2020-02-21 13:36 | NUR ---
RECEIVED CALL FROM TELE REFERENCE LIBRARY ASSISTANT, PATIENT HAD 6 BEATS NSVT. PATIENT ALSO HAS FREQUENT PVC'S. PATIENT IS ASYMPTOMATIC AND DENIES CP/CARDIAC DISCOMFORT. BP 110/66, HR 64, O2 98% ON RA. PAGED DR. GONZALEZ, ON-CALL PETROLEUM ANALYST SALAS MADE AWARE. DR. LIZARRAGA MADE AWARE.
[2020-02-21 16:45] VITALS: BP 115/71
--- NOTE | 2020-02-21 19:02 | NUR ---
PATIENT RESTING IN BED, RESPIRATIONS EVEN AND UL ON RA. DENIES PAIN. NO ACUTE CHANGES THROUGHOUT SHIFT. BED IN LOWEST POSITION, CALL LIGHT IN REACH, SAFETY MEASURES IN PLACE. WILL CONT TO MONITOR AND ENDORSE TO NIGHT NURSE.
--- NOTE | 2020-02-21 20:00 | NUR ---
patient alert and oriented x4. mag infusion is complete. no s/s of distress, calm in bed. denies pain. bed in lowest position, call light within reach. will continue to monitor
[2020-02-21 20:45] VITALS: BP 117/70
--- NOTE | 2020-02-22 | NUR ---
PATIENT IS CALM AND ASLEEP IN BED, NO S/S OF DISTRESS NOTED. WILL CONTINUE TO MONITOR.
[2020-02-22 05:36] VITALS: BP 116/64
--- NOTE | 2020-02-22 06:39 | NUR ---
PATIENT HAD A PEACEFUL NIGHT. CALM. DENIES PAIN. NO SIGNIFICANT EVENT. BED IN LOWEST POSITION, CALL LIGHT WITHIN REACH. WILL ENDORSE CARE TO DAY NURSE.
--- NOTE | 2020-02-22 07:30 | NUR ---
RECEIVED REPORT FROM NIGHT NURSE. PATIENT IS RESTING IN BED, RESPIRATIONS EVEN AND UL ON RA. AAO TIMES 4. DENIES PAIN. DENIES CP/CARDIAC DISCOMFORT. IV SITE TO RAC DISLODGED, REMOVED, CATH INATCT. 22G INSERTED TO LH. BED IN LOWEST POSITION, CALL LIGHT IN REACH, SAFETY MEASURES IN PLACE. WILL CONTINUE TO MONITOR.
[2020-02-22 08:09] VITALS: BP 131/86
[2020-02-22 13:05] VITALS: BP 133/88
--- NOTE | 2020-02-22 15:06 | NUR ---
PATIENT RESTING IN BED, RESPIRATIONS EVEN AND UL ON RA. DENIES PAIN AND DISCOMFORT. BED IN LOWEST POSITION, CALL LIGHT INN REACH, SAFETY MEASURES IN PLACE.
[2020-02-22 17:15] VITALS: BP 127/78
--- NOTE | 2020-02-22 18:56 | NUR ---
PATIENT RESTING IN BED, RESPIRATIONS EVEN AND UL ON RA. DENIES PAIN. SL TO LH, INTACT AND PATENT, FLUSHES WELL. NO ACUTE CHANGES THROUGHOUT SHIFT. SURGERY CONSENT OBTAINED. PT IS TO BE NPO AT MIDNIGHT FOR SURGERY TOMORROW. BED IN LOWEST POSITION, CALL LIGHT IN REACH, SAFETY MEASURES IN PLACE. WILL CONT TO MONITOR AND ENDORSE TO NIGHT NURSE.
--- NOTE | 2020-02-22 20:00 | NUR ---
PT A/A/O X4. DENIES DIZZINESS AND HEADACHE. BREATH SOUNDS DIMINISHED ABIMBOLA LUNGS. BREATHING EVEN AND UNLABORED ON ROOM AIR, SPO2 95%. DENIES CHEST PAIN, PALPITATION AND PRESSURE THUS FAR. BOWEL SOUNDS ACTIVE. NO C/O N/V AND ABD PAIN. IV SALINE LOCK INTACT ON THE RIGHT HAND. MADE PT COMFORTABLE. PLACED CALL LIGHT WITH IN REACH. WILL CONTINUE TO MONITOR.
[2020-02-22 20:11] VITALS: BP 138/87
--- NOTE | 2020-02-23 00:39 | NUR ---
PT RESTING WITH EYES CLOSED. NO DISTRESS AND DISCOMFORT NOTED. WILL CONTINUE TO MONITOR.
[2020-02-23 05:35] VITALS: BP 130/77
--- NOTE | 2020-02-23 06:12 | NUR ---
PT QUIET AND RESTING. NO C/O PALPITATION AND DISCOMFORT THUS FAR. MADE PT COFMORTABLE. WILL ENDORSE TO THE AM NURSE ACCORDINGLY.
[2020-02-23 07:26] LABS: BASOPHIL % 0.7 % (0-2); PLATELET COUNT 153 x10^3mcL (130-400); RED CELL DISTRIBUTION WIDTH 13.9 % (11.5-14.5)
[2020-02-23 07:27] LABS: CALCIUM 8.6 mg/dL (8.5-10.1); CARBON DIOXIDE 25.2 mmol/L (21-32); POTASSIUM SERUM 3.6 mmol/L (3.5-5.1)
[2020-02-23 08:13] VITALS: BP 137/88
--- NOTE | 2020-02-23 11:16 | NUR ---
PATIENT IS A 64 YEAR OLD FEMALE THAT WAS ADMITTED TO [facility] FOR PALPITATIONS WHICH PROMPTED LABS SHOWING ELEVATED TROPONIN AND CHF EXACERBATION. PATIENT WAS ORDERED A BIVENTRICULAR AICD PLACEMENT ON 02/23/20 1330. JUST GOT CALLED FROM OR THAT PATIENT WILL BE MOVED UP TO 1200. PENDING THERE ARRIVAL TO NURSING HOME PHYSICIAN THE PATIENT. SHE IS ALERT AND ORIENTED X4 NO S/S OF DISTRESS NOTED. TELE #30 SR WITH PVCS NOTED.
--- NOTE | 2020-02-23 15:51 | NUR ---
PATIENT BACK FROM SURGERY- ACID PLACED. REPORT RECIEVED FROM BRENDA: ICD IMPLANTED WITH LEFT CHEST SITE- DERMA BONDED. GENERAL ANESTHESIA. 1GM ANCEF AND VANCO GIVEN. PATIENT BACK IN ROOM IV PLACED IN LEFT AC 20G. SHE IS REQUESTING REMOVAL SAYING ITS PAINFUL. IV REMOVED. SAME IV IN RIGHT HAND 22G INACT AND PATENT.
--- NOTE | 2020-02-23 16:32 | NUR ---
PATIENT TYLENOL GIVEN PRN FOR PAIN 6/10 S/P ACID PROCEDURE. NO S/S OF DISTRESS.
[2020-02-23 17:56] VITALS: BP 113/75
--- NOTE | 2020-02-23 18:33 | NUR ---
SPOKE WITH - REQUESTED BENADRYL- HE WILL PLACE ORDER THEN I WILL ADMINISTER FOR ITCHING.
[2020-02-23 21:33] VITALS: BP 112/63
--- NOTE | 2020-02-24 00:44 | NUR ---
02/23/20 AT 1999.RECEIVED PATIENT IN BED,AWAKE,ALERT,AND ORIENTED.SKIN WARM AND DRY TO TOUCH,LUNGS SOUND DIMINISHED UPON AUSCULTATION. NSR WITH PVC'S ON TELE#30.S/P AICD PLACEMENT TO LT.CHEST WITH DRESSING INTACT.CALL LIGHT WITHIN REACH.
[2020-02-24 04:57] VITALS: BP 128/68
--- NOTE | 2020-02-24 06:53 | NUR ---
PATIENT SLEPT WELL AT NIGHT.DENIES CHESTPAIN AND DISCOMFORT.S/P LEFT AICD DRESSING CLEAN AND INTACT.REMAINED ON NSR WITH OCC.PVC'S TELE #30.CALL LIGHT WITHIN REACH.
--- NOTE | 2020-02-24 08:09 | NUR ---
PATIENT IS A 64 YEAR OLD FEMALE THAT WAS AMITTED TO [facility] FOR PALPITATIONS THE ADMITTING DX WAS CHF EXCACERBATION AND ELEVATED TROPONIN. PATIENT HAD A BIVENTRICULAR AICD PLACED YESTERDAY WITH LEFT CHEST SITE INCISION WITH DERMABOND. UPON ASSESSMENT PATIENT IS ALERT AND ORIENTED X4. NO S/S OF DISTRESS NOTED. RECCOMENDATION FOR THE DAY IS POSSIBLE DISCHARGE. WILL LET HER KNOW SOON ORDER AND PLAN IS PLACED.
--- NOTE | 2020-02-24 08:30 | NUR ---
[employer] IS HERE, THEY CHECKED THE PACEMAKER, IT IS RUNNING PERFECT RESULTS ARE PLACED IN CHART AND TECH WILL ALSO SEND TO .
[2020-02-24 08:34] VITALS: BP 117/69
[2020-02-24] MEDS ORDERED: COR6 PO (09:11)
[2020-02-24] MEDS ORDERED: ELIQUIS5 MG PO (09:11)
[2020-02-24] MEDS ORDERED: ATORVASTATIN CA40 M1 PO (09:11)
[2020-02-24] MEDS ORDERED: NOR10 PO (09:12)
[2020-02-24] MEDS ORDERED: ALD25 PO (09:13)
[2020-02-24] MEDS ORDERED: COZ25 PO (09:15)
[2020-02-24 09:46] VITALS: BP 112/63
--- NOTE | 2020-02-24 11:26 | NUR ---
CALLED CM DEPARTMENT AND MADE THEM AWARE ABOUT STAT ORDER TO ARRANGE APPOINTMENT SO I CAN DC PATIENT. MEETING HAS JUST FINISHED SO SANDRA WILL ARRANGE AND CALL ME BACK.
[2020-02-24 11:28] VITALS: BP 120/70
== END 2020-02-24 14:20 | disposition home or self-care (01) | DRG 161 ==
LOC: ED 19:27 → DU 02-19 00:16
PROVIDERS: Specialist; ADMIT Internal Medicine; ATTEND Internal Medicine
PROC: 02HK3KZ Insertion of Defibrillator Lead into Right Ventricle, Percutaneous Approach (ICD-10-PCS; 2020-02-23)
PROC: 02HL3KZ Insertion of Defibrillator Lead into Left Ventricle, Percutaneous Approach (ICD-10-PCS; 2020-02-23)
PROC: 0JH609Z Insertion of Cardiac Resynchronization Defibrillator Pulse Generator into Chest Subcutaneous Tissue and Fascia, Open Approach (ICD-10-PCS; principal; 2020-02-23 13:30)
DX: I47.2 Ventricular tachycardia (principal); N17.0 Acute kidney failure with tubular necrosis; I50.23 Acute on chronic systolic (congestive) heart failure; I48.0 Paroxysmal atrial fibrillation; I44.7 Left bundle-branch block, unspecified; I11.0 Hypertensive heart disease with heart failure; I42.0 Dilated cardiomyopathy; E86.0 Dehydration; E87.6 Hypokalemia; F17.210 Nicotine dependence, cigarettes, uncomplicated; Z20.828 Contact with and (suspected) exposure to other viral communicable diseases; J44.9 Chronic obstructive pulmonary disease, unspecified; I49.3 Ventricular premature depolarization; J45.909 Unspecified asthma, uncomplicated; Z88.6 Allergy status to analgesic agent; Z88.8 Allergy status to other drugs, medicaments and biological substances; Z86.73 Personal history of transient ischemic attack (TIA), and cerebral infarction without residual deficits; Z90.3 Acquired absence of stomach [part of]; Z71.6 Tobacco abuse counseling
CPT/HCPCS: 33225; 33249; 83880; 84439; C1721; G0378; J0690; J1200; J1940; J2001; J2250; J3010; J3370; J3475; J7030; J7050; Q9967

== ENCOUNTER 2020-05-17 20:52 | Inpatient (IN) | payer OTHER, SELFPAY ==
[~2020-05-17] VITALS: Ht 170.2 cm; Wt 95.4 kg
[~2020-05-17 20:52] MED LIST changes: +ALD25 PO; +ATORVASTATIN CA40 M1 PO; +COR6 PO; +COZ25 PO; +ELIQUIS5 MG PO
[2020-05-17 21:05] VITALS: Ht 170.2 cm; Wt 95.4 kg
[2020-05-17 21:45] LABS: BASOPHIL % 1.1 % (0.2-1.3); PLATELET COUNT 164 x10^3mcL (179-408)
[2020-05-17 21:46] LABS: RED CELL DISTRIBUTION WIDTH 16.1 % (12.3-17.7)
[2020-05-17 22:01] LABS: CALCIUM 8.6 mg/dL (8.5-10.1); CARBON DIOXIDE 32.1 mmol/L (21-32); CREATININE SERUM 1.1 mg/dL (0.6-1.0); POTASSIUM SERUM 3.9 mmol/L (3.5-5.1)
[2020-05-17 22:18] LABS: ALBUMIN 2.9 g/dL (3.4-5.0); BILIRUBIN TOTAL 0.5 mg/dL (0.20-1.00); TOTAL PROTEIN, SERUM 6.5 g/dL (6.4-8.2)
[2020-05-17] MEDS ORDERED: TOPROL XL25 MG (23:54)
[2020-05-17] MEDS ORDERED: PROS (23:54)
[2020-05-17] MEDS ORDERED: LASIX20 MG (23:54)
[2020-05-17] MEDS ORDERED: POTASSIUM CHLOR8 MEQ (23:55)
[2020-05-17] MEDS ORDERED: XARELTO2.5 MG (23:55)
[2020-05-18] MEDS ORDERED: ATORVASTATIN CA40 M1 PO (02:52)
[2020-05-18 05:11] VITALS: BP 141/83
[2020-05-18 08:21] VITALS: BP 120/77
[2020-05-18 10:04] LABS: BASOPHIL % 0.8 % (0.2-1.3); PLATELET COUNT 158 x10^3mcL (179-408)
[2020-05-18 10:19] LABS: CALCIUM 8.5 mg/dL (8.5-10.1); CARBON DIOXIDE 30.7 mmol/L (21-32); CREATININE SERUM 1.1 mg/dL (0.6-1.0); POTASSIUM SERUM 3.1 mmol/L (3.5-5.1)
[2020-05-18] MEDS ORDERED: ALD25 PO (12:34)
[2020-05-18] MEDS ORDERED: COR3 PO (12:39)
[2020-05-18 13:02] VITALS: BP 149/85
[2020-05-18 13:09] VITALS: BP 149/85
[2020-05-18] MEDS ORDERED: LOSARTAN POTASS25 M1 PO (15:15)
== END 2020-05-18 14:35 | disposition home health service (06) | DRG 194 ==
LOC: ED 20:52 → DU 23:08
PROVIDERS: Emergency Medicine; ADMIT Internal Medicine; ATTEND Internal Medicine
DX: I11.0 Hypertensive heart disease with heart failure (principal); N17.9 Acute kidney failure, unspecified; E44.0 Moderate protein-calorie malnutrition; E86.0 Dehydration; Z79.01 Long term (current) use of anticoagulants; I48.0 Paroxysmal atrial fibrillation; E78.00 Pure hypercholesterolemia, unspecified; J44.1 Chronic obstructive pulmonary disease with (acute) exacerbation; Z20.822 Contact with and (suspected) exposure to COVID-19; F17.210 Nicotine dependence, cigarettes, uncomplicated; I50.43 Acute on chronic combined systolic (congestive) and diastolic (congestive) heart failure; K21.9 Gastro-esophageal reflux disease without esophagitis; Z60.2 Problems related to living alone; Z95.0 Presence of cardiac pacemaker; Z71.6 Tobacco abuse counseling; Z86.73 Personal history of transient ischemic attack (TIA), and cerebral infarction without residual deficits; Z68.27 Body mass index [BMI] 27.0-27.9, adult
CPT/HCPCS: 83880; 85378; G0378; J1940; J3535; U0003